=== PATIENT | male | born 1980 | race Hispanic/Latino ===

== ENCOUNTER 2023-11-27 06:23 | Day surgery (SDC) | payer OTHER ==
[2023-11-27] VITALS (9 sets, daily range): BP systolic 133–156; BP diastolic 80–101; PULSE 74–86; RESP 14–17
[~2023-11-27] VITALS: Ht 180.3 cm; Wt 94.8 kg
[~2023-11-27 06:23] MED LIST: METO25TA6 PO; SERT-440 PO
[2023-11-27] MEDS ORDERED: 0.9%NACL 1000ML 1,000 ML IV ONE (06:49)
[2023-11-27] MEDS ORDERED: PROPOFOL 10 MG/ML 20ML VIAL IV ONE ×2 (08:41)
[2023-11-27] MEDS ORDERED: LIDOCAINE HCL 1% 20 ML VIAL ONE (08:41)
== END 2023-11-27 10:05 | disposition home or self-care (01) ==
LOC: DAH 06:23 → ENDO 06:23
PROVIDERS: ATTEND Internal Medicine Gastroenterology
DX: R19.7 Diarrhea, unspecified (principal); R14.0 Abdominal distension (gaseous); R19.4 Change in bowel habit; K63.89 Other specified diseases of intestine; K62.1 Rectal polyp; K29.50 Unspecified chronic gastritis without bleeding; K21.00 Gastro-esophageal reflux disease with esophagitis, without bleeding; K31.89 Other diseases of stomach and duodenum; I10 Essential (primary) hypertension; F41.9 Anxiety disorder, unspecified; F32.A Depression, unspecified; Z80.0 Family history of malignant neoplasm of digestive organs; Z79.899 Other long term (current) drug therapy; Z79.01 Long term (current) use of anticoagulants; Z87.891 Personal history of nicotine dependence; Z72.89 Other problems related to lifestyle
CPT/HCPCS: 43239; 45380; 45385; J7030 ×2; J2704 ×2; A4620; A4215 ×2; A4223; A7002; A4222; A4221; A4663; A4606; J3490